=== PATIENT | male | born 1965 | race Caucasian/White ===

== ENCOUNTER 2019-11-16 04:33 | Emergency (ER) | payer MEDICAID ==
[~2019-11-16] VITALS: Ht 170.2 cm; Wt 78.5 kg
[2019-11-16 06:10] VITALS: BP 136/87
== END 2019-11-16 06:10 | disposition home or self-care (01) ==
LOC: ED 04:33
DX: G89.29 Other chronic pain (principal); M25.512 Pain in left shoulder; Z98.890 Other specified postprocedural states
CPT/HCPCS: J1885

== ENCOUNTER 2019-12-27 00:18 | Emergency (ER) | payer MEDICAID ==
[~2019-12-27] VITALS: Ht 170.2 cm; Wt 76.7 kg
[2019-12-27 00:27] VITALS: Ht 170.2 cm; Wt 76.7 kg
[2019-12-27 01:47] VITALS: BP 118/69
== END 2019-12-27 01:47 | disposition home or self-care (01) ==
LOC: ED 00:18
DX: G89.29 Other chronic pain (principal); M54.5 Low back pain; M25.512 Pain in left shoulder; Z98.890 Other specified postprocedural states
CPT/HCPCS: J1885

== ENCOUNTER 2020-05-12 15:06 | Emergency (ER) | payer OTHER ==
[~2020-05-12] VITALS: Ht 175.3 cm; Wt 76.7 kg
[2020-05-12 15:19] VITALS: Ht 175.3 cm; Wt 76.7 kg
[2020-05-12 18:48] LABS: microscopic required? NO
[2020-05-12 19:10] LABS: UA SPECIFIC GRAVITY 1.015 (1.005-1.035); urine erythrocyte NEGATIVE (NEGATIVE)
[2020-05-12 20:04] VITALS: BP 132/92
== END 2020-05-12 20:04 | disposition home or self-care (01) ==
LOC: ED 15:06
PROVIDERS: Emergency Medicine
DX: M54.5 Low back pain (principal); R53.1 Weakness; R35.0 Frequency of micturition
CPT/HCPCS: J1885